=== PATIENT | female | born 1950 | race Asian ===

== ENCOUNTER 2016-06-07 09:30 | Emergency (ER) | payer OTHER ==
[~2016-06-07] VITALS: Ht 142.2 cm; Wt 50.3 kg
[2016-06-07 10:28] LABS: CALCIUM 9.1 mg/dL (8.5-10.1); CARBON DIOXIDE 26.3 mmol/L (21-32); CHLORIDE SERUM 103 mmol/L (98-107); CREATININE SERUM 0.8 mg/dL (0.6-1.0); GFR1 > 60 mL/min; GLUCOSE SERUM 113 mg/dL (74-106); POTASSIUM SERUM 4.1 mmol/L (3.5-5.1); SODIUM SERUM 140 mmol/L (136-145)
[2016-06-07 10:33] LABS: ALBUMIN 3.8 g/dL (3.4-5.0); ALKALINE PHOSPHATASE 74 U/L (46-116); ALT/SGPT 20 U/L (14-59); AMYLASE 49 U/L (25-115); AST/SGOT 18 U/L (15-37); BILIRUBIN TOTAL 0.3 mg/dL (0.20-1.00); LIPASE 191 IU/L (73-393)
[2016-06-07 10:41] LABS: BASOPHIL % 0.5 % (0-2); PLATELET COUNT 191 x10^3mcL (130-400); RED CELL DISTRIBUTION WIDTH 13.4 % (11.5-14.5)
[2016-06-07] MEDS ORDERED: ATENOLOL25 MG PO (11:52)
[2016-06-07 13:06] VITALS: BP 148/80
== END 2016-06-07 13:06 | disposition home or self-care (01) ==
LOC: ED 09:30
PROVIDERS: Emergency Medicine
DX: R10.9 Unspecified abdominal pain (principal); K76.89 Other specified diseases of liver; I10 Essential (primary) hypertension; R05 Cough
CPT/HCPCS: 83880; J2405; J3490; Q0092

== ENCOUNTER 2017-12-15 07:03 | Emergency (ER) | payer OTHER ==
[~2017-12-15] VITALS: Ht 142.2 cm; Wt 50.3 kg
[~2017-12-15 07:03] MED LIST: ATENOLOL25 MG PO
[2017-12-15 07:18] VITALS: Ht 142.2 cm; Wt 50.3 kg
[2017-12-15 08:22] LABS: BASOPHIL % 0.3 % (0-2); PLATELET COUNT 192 x10^3mcL (130-400); RED CELL DISTRIBUTION WIDTH 13.1 % (11.5-14.5)
[2017-12-15 08:30] LABS: UA SPECIFIC GRAVITY 1.015 (1.005-1.035); microscopic required? YES; urine erythrocyte NEGATIVE (NEGATIVE)
[2017-12-15 09:08] LABS: ALBUMIN 3.8 g/dL (3.4-5.0); ALKALINE PHOSPHATASE 60 U/L (46-116); ALT/SGPT 20 U/L (14-59); AMYLASE 57 U/L (25-115); AST/SGOT 19 U/L (15-37); BILIRUBIN TOTAL 0.3 mg/dL (0.20-1.00); CALCIUM 9.2 mg/dL (8.5-10.1); CARBON DIOXIDE 27.1 mmol/L (21-32); CHLORIDE SERUM 101 mmol/L (98-107); CHOLESTEROL 167 mg/dL (<200); CREATININE SERUM 0.9 mg/dL (0.6-1.0); GFR1 > 60 mL/min; GLUCOSE SERUM 112 mg/dL (74-106); LIPASE 219 IU/L (73-393); POTASSIUM SERUM 4.2 mmol/L (3.5-5.1); SODIUM SERUM 134 mmol/L (136-145); T4(THYROXINE) 4.9 ug/dL (4.7-13.3); TOTAL PROTEIN, SERUM 8.2 g/dL (6.4-8.2)
[2017-12-15 09:09] LABS: AMPHETAMINE QUAL UR NONE DETECTED (See below)
[2017-12-15 09:10] LABS: HDL CHOLESTEROL 72 mg/dL (40-60)
[2017-12-15 11:37] VITALS: BP 104/59
== END 2017-12-15 11:37 | disposition home or self-care (01) ==
LOC: ED 07:03
PROVIDERS: Emergency Medicine
DX: F41.9 Anxiety disorder, unspecified (principal); I10 Essential (primary) hypertension; E78.00 Pure hypercholesterolemia, unspecified; E03.9 Hypothyroidism, unspecified; Z98.890 Other specified postprocedural states
CPT/HCPCS: 36415; 83880; Q0092

== ENCOUNTER 2017-12-16 22:18 | Inpatient (IN) | payer OTHER ==
[~2017-12-16] VITALS: Ht 142.2 cm; Wt 52.8 kg
[2017-12-16 22:25] VITALS: Ht 142.2 cm; Wt 52.8 kg
[2017-12-17] VITALS (7 sets, daily range): BP systolic 103–133; BP diastolic 42–64
[2017-12-17 01:03] LABS: BASOPHIL % 0.1 % (0-2); PLATELET COUNT 180 x10^3mcL (130-400); RED CELL DISTRIBUTION WIDTH 13.3 % (11.5-14.5)
[2017-12-17 01:14] LABS: CALCIUM 8.2 mg/dL (8.5-10.1); CHLORIDE SERUM 101 mmol/L (98-107); CREATININE SERUM 0.7 mg/dL (0.6-1.0); GFR1 > 60 mL/min; GLUCOSE SERUM 114 mg/dL (74-106); POTASSIUM SERUM 3.3 mmol/L (3.5-5.1); SODIUM SERUM 138 mmol/L (136-145)
[2017-12-17 01:19] LABS: ALBUMIN 3.6 g/dL (3.4-5.0); ALKALINE PHOSPHATASE 61 U/L (46-116); ALT/SGPT 20 U/L (14-59); AST/SGOT 23 U/L (15-37); BILIRUBIN TOTAL 0.5 mg/dL (0.20-1.00); LIPASE 133 IU/L (73-393)
[2017-12-17 01:30] LABS: microscopic required? YES; urine erythrocyte TRACE (NEGATIVE)
[2017-12-17] MEDS ORDERED: LIPI10 PO (02:16)
[2017-12-17] MEDS ORDERED: LOSARTAN POTASS1 TAB PO (02:17)
[2017-12-17] MEDS ORDERED: ATENOLOL25 MG PO (02:17)
[2017-12-17] MEDS ORDERED: METHIMAZOLE5 MG PO (02:17)
[2017-12-17] MEDS ORDERED: RESTASIS0.051 OP (02:18)
[2017-12-18 05:40] VITALS: BP 137/53
[2017-12-18 06:22] LABS: PLATELET COUNT 141 x10^3mcL (130-400); RED CELL DISTRIBUTION WIDTH 13.5 % (11.5-14.5)
[2017-12-18 06:27] LABS: ALKALINE PHOSPHATASE 51 U/L (46-116); ALT/SGPT 18 U/L (14-59); AST/SGOT 21 U/L (15-37); BILIRUBIN TOTAL 0.19 mg/dL (0.20-1.00); CALCIUM 7.5 mg/dL (8.5-10.1); CARBON DIOXIDE 24.6 mmol/L (21-32); CHLORIDE SERUM 110 mmol/L (98-107); CREATININE SERUM 0.7 mg/dL (0.6-1.0); GFR1 > 60 mL/min; GLUCOSE SERUM 123 mg/dL (74-106); POTASSIUM SERUM 3.4 mmol/L (3.5-5.1); SODIUM SERUM 141 mmol/L (136-145); TOTAL PROTEIN, SERUM 6.2 g/dL (6.4-8.2)
[2017-12-18 06:36] LABS: ALBUMIN 2.8 g/dL (3.4-5.0)
[2017-12-18 07:55] VITALS: BP 129/60
[2017-12-18 12:03] VITALS: BP 125/59
[2017-12-18] MEDS ORDERED: PANTOPRAZOLE SO40 M1 PO (12:36)
== END 2017-12-18 16:22 | disposition home or self-care (01) | DRG 392 ==
LOC: ED 22:18 → MU 12-17 02:11
PROVIDERS: Emergency Medicine; Internal Medicine
PROC: 0DJ08ZZ Inspection of Upper Intestinal Tract, Via Natural or Artificial Opening Endoscopic (ICD-10-PCS; principal; 2017-12-17 13:30)
DX: K52.9 Noninfective gastroenteritis and colitis, unspecified (principal); Q27.33 Arteriovenous malformation of digestive system vessel; E87.6 Hypokalemia; K21.9 Gastro-esophageal reflux disease without esophagitis; I10 Essential (primary) hypertension; Z68.24 Body mass index [BMI] 24.0-24.9, adult
CPT/HCPCS: 43235; 87046; 87046-59; 90658; J0696; J1200; J1610; J1644; J1956; J2250; J2270; J2310; J2405; J2765; J3010; J3480; J3490; J7030; J7042; J7050; Q9966; Q9967